=== PATIENT | male | born 1950 | race Caucasian/White ===

== ENCOUNTER → 2016-12-28 | Outpatient (CLI) | payer MEDICARE | END | disposition home or self-care (01) | LOC: GMAH 14:56 | PROVIDERS: ATTEND Family Medicine | DX: E03.9 Hypothyroidism, unspecified (principal); N39.0 Urinary tract infection, site not specified ==

== ENCOUNTER → 2017-02-16 | Outpatient (CLI) | payer MEDICARE | END | disposition home or self-care (01) | LOC: GMAM 13:13 | PROVIDERS: ATTEND Family Medicine | DX: N39.0 Urinary tract infection, site not specified (principal) ==

== ENCOUNTER → 2017-02-23 | Outpatient (CLI) | payer MEDICARE ==
--- NOTE | 2017-02-23 15:14 | CT ---
EXAM DESCRIPTION: Abdoment/Pelvis w/o Contrast CLINICAL HISTORY: 66 years,Male,CHRONIC PROSTATITS COMPARISON: None TECHNIQUE: Multiple axial helical tomographic images were obtained of the abdomen and pelvis with out IV or oral contrast and then reconstructed sagittal coronal plane FINDINGS: The unenhanced liver demonstrates a 1.2 cm simple cyst posterior right lobe. The spleen is unremarkable. The Pancreas is unremarkable. The adrenal glands are unremarkable. There are no stones seen in the urinary collection system. The kidneys demonstrate a low-density lesion right kidney midpole measuring 1.8 cm in diameter. With ill-defined borders. And a small simple appearing cysts lower pole left kidney exophytic measuring 1.4 cm. The bladder has a slightly thickened wall and there is mild right hydroureter and moderate hydronephrosis but no obvious stones seen. The prostate slightly large to 5.8W by four AP centimeters with some dystrophic calcifications. The gallbladder is demonstrates a few small calcified stones. No free air free fluid masses or adenopathy. The included bowel are unremarkable. The lung bases are unremarkable. The surrounding soft tissues are unremarkable. The bony elements some scattered disease lumbar spine worse at L1-1-2 and four five which is moderate to severe. IMPRESSION: Mild to moderate prostate hypertrophy. There is mild generalized thickening of the urinary bladder wall so cannot exclude cystitis but this could just be due to chronic outlet obstruction. And moderate right hydronephrosis and mild hydroureter. Which could be due to a ureter vesicular junction stenosis or even small unseen mass or nonradiopaque stone. Recommend further urological follow-up. There is a ill-defined low-density lesion mid pole right kidney. This most likely is a simple cyst but recommend either ultrasound or CT scan with IV contrast to confirm cystic versus solid a small simple appearing cyst lower pole left kidney Cholecystitis Electronically signed by: Tonny Duarte MD 02/23/2017 3:13 PM CDT
== END | disposition home or self-care (01) ==
LOC: CT 10:40
PROVIDERS: ATTEND Urology
DX: N41.1 Chronic prostatitis (principal)

== ENCOUNTER 2017-08-11 09:04 | Observation (INO) | payer MEDICARE ==
[2017-08-11] MEDS ORDERED: ASPIRIN TABLET 325 MG TAB PO ONE (09:20)
--- NOTE | 2017-08-11 09:51 | ED.PDOC ---
History of Present Illness - General Chief Complaint: Chest Pain/MS Stated Complaint: CHEST PAIN Time Seen by Provider: 08/11/17 09:23 Source: patient Exam Limitations: no limitations - History of Present Illness Initial Comments: Berny Esquivel 67 y/o male stated that he got his mail this morning from his mailbox walking returning to his house and sat but felt numbing feeling on left chest ,neck and left shoulder no diaphoresis,no SOB, no nausea.Had previous episode of same symptom in the past but did not last long.Had Afib in the [id number] and cardiac ablation done at [facility] which restored it to sinus rhythm.Stated his symptoms got better. Timing/Duration: 1-3 hours Severity/Quality: moderate, dull Location: central Chest Pain Radiation: neck, shoulders Activities at Onset: activity Prior Chest Pain/Cardiac Workup: no prior chest pain, echocardiography, other - see hpi Improving Factors: rest Worsening Factors: nothing Nitro Today/Relief: no nitro taken today Aspirin Treatment Today: 325 mg x 1, provided by ED Associated Symptoms: denies symptoms Allergies/Adverse Reactions: Allergies NO KNOWN ALLERGY Allergy (Unverified 01/05/14 02:09) Home Medications: Ambulatory Orders Levothyroxine Sodium [Synthroid] 50 mcg PO DAILY 08/11/17 Metoprolol Tartrate 50 mg PO DAILY 08/11/17 Review of Systems - Review of Systems Constitutional: States: no symptoms reported EENTM: States: see HPI, blurred vision - legally blind right eye Respiratory: States: no symptoms reported Cardiology: States: see HPI Gastrointestinal/Abdominal: States: no symptoms reported Genitourinary: States: no symptoms reported Past Medical History (General) - Patient Medical History Hx Cardiac Disorders: Yes - Atrial fib Hx Congestive Heart Failure: No Hx Hypertension: Yes Hx Thyroid Disease: Yes Hx Other PMH: Yes - right eye ischemic optic neuropathy Surgical History: other - cataract bilateral,cardiac ablation - Vaccination History Hx Influenza Vaccination: No Hx Pneumococcal Vaccination: No - Social History Hx Tobacco Use: No Hx Alcohol Use: No Hx Substance Use: No - Activities of Daily Living Patient Lives Alone: No - Family Medical History - Family History Father Family History: Unknown Living Status: Unknown Hx Family;Other: PARKINSONS-mom Physical Exam - Physical Exam General Appearance: Alert, No apparent distress Eyes, Ears, Nose, Throat Exam: normal ENT inspection, pharynx normal, other - legally blind right eye-see shadows only Neck: non-tender, supple Respiratory: chest non-tender, lungs clear, normal breath sounds Cardiovascular/Chest: normal peripheral pulses, regular rate, rhythm, no murmur Peripheral Pulses: radial,right: 1+, radial,left: 1+ Gastrointestinal/Abdominal: normal bowel sounds, non tender, soft, no organomegaly Extremity: normal range of motion, non-tender, normal inspection, no pedal edema , no calf tenderness Neurologic: no motor/sensory deficits, alert, normal mood/affect, oriented x 3 Skin Exam: normal color, warm/dry Progress - Progress Progress: 08/11/17 09:57 Vital Signs - 8 hr 08/11/17 08/11/17 09:09 09:24 Temperature 95.9 F L Pulse Rate [ 86 85 Left Brachial] Respiratory 20 Rate Blood Pressure 156/102 [Left Arm] O2 Sat by Pulse 100 Oximetry - EKG/XRAY/CT EKG: Sinus, no ST T wave changes Comments: Heart rate-88 XRAY: chest - no acute changes,heart size normal Departure - Departure Clinical Impression: Chest discomfort Time of Disposition: 12:11 Disposition: Admit Patient Condition: Fair Home Medications: Ambulatory Orders Levothyroxine Sodium [Synthroid] 50 mcg PO DAILY 08/11/17 Metoprolol Tartrate 50 mg PO DAILY 08/11/17 Decision To Admit - Decistion To Admit Decision to Admit Reason: Admit from ER Decision to Admit Date: 08/11/17 Decision to Admit Time: 12:11 - D/W Dr. Gallo-Hospitalist
--- NOTE | 2017-08-11 09:56 | RAD ---
Portable chest INDICATION: Chest pain IMPRESSION: Heart size normal. Minimal vascular congestion. Lucency under the right hemidiaphragm is probably in bowel but is nonspecific. No pleural effusion or pneumothorax. No focal infiltrate. Electronically signed by: Spenser Joseph MD 08/11/2017 9:54 AM CDT
--- NOTE | 2017-08-11 12:04 | HP ---
HISTORY OF PRESENT ILLNESS: This 67-year-old, white male walked out to the mailbox to get his mail earlier today. He had already eaten breakfast earlier. He noted the onset of left anterior chest significant aching sensation with radiation to the left side of the neck and the left arm, especially medially. No associated shortness of breath, diaphoresis, dizziness, nausea or vomiting noted. Duration was about 20 minutes and it spontaneously resolved. He had some symptoms similar to this while walking two weeks before with a strange ache in his left chest. He slowed his walking and the pain eased up and went away. He did some heavy lifting of some large stones about a week before and had no symptoms at that time. Otherwise, no previous history of symptoms in the past. The patient is placed in the hospital for overnight observation with serial EKG, cardiac enzymes to rule out the presence of underlying ischemic disease process contributing to his current symptoms. PAST MEDICAL HISTORY: 1. Cataracts. 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 Subsequently, he had his left eye which had worsened to the point where he was totally blind repaired at [facility] in [place] on 05/15/17 successfully with good vision subsequently. 2. Hypertension. 3. Prostate cancer noted no transurethral resection of the prostate specimens. PAST SURGICAL HISTORY: 1. Transurethral resection of the prostate because of bladder outlet obstruction with large prostate, at which time they found several niduses of prostate cancer and urological followup will be continued. 2. Years ago, he had atrial fibrillation and had the MAZE ablation procedure performed at [facility] which eliminated the atrial fibrillation problem. 3. Right eye cataract removal in August of 2015 and left eye on 05/15/17. CURRENT MEDICATIONS: Please refer to nursing list. ALLERGIES: NONE KNOWN. FAMILY HISTORY: Positive for cerebrovascular accidents and atrial fibrillation. 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 No tobacco use. REVIEW OF SYSTEMS: GENERAL: No significant weight change, fever or chills. HEENT: Loss of vision in his right eye. Left eye is doing much better after cataract surgery two months ago. Hearing is good. LUNGS: No significant shortness of breath or cough. CARDIOVASCULAR: No significant palpitations or chest pains recently, but a history of atrial fibrillation in the past. GASTROINTESTINAL: No diarrhea, nausea or vomiting. GENITOURINARY: History of recurring urinary tract infections, probably because of bladder outlet obstruction from a large prostate, now improved after transurethral resection of the prostate procedure performed by Dr. Velasquez. EXTREMITIES: Well formed. PHYSICAL EXAMINATION: VITAL SIGNS: Blood pressure 153/98. Pulse 73. Afebrile. Pulse oximetry 99% to 100% on room air. HEENT: Loss of vision in the right eye after retinal ischemic episode after his original cataract procedure. The left eye has good vision after cataract removal two months ago at [facility] in [place]. LUNGS: Generally clear. CARDIOVASCULAR: Heart tones are regular. EKG is within normal limits at this time. ABDOMEN: Soft with no obstipation, organomegaly or tenderness. EXTREMITIES: Well-formed, no significant edema. NEUROLOGIC: No focal neurological deficits are noted. The patient is awake, alert, oriented and communicative. LABORATORY: White count 6,400, hemoglobin 15.7. INR 1. D-dimer under 200. Chemistries show potassium 3.9, sodium 139, BUN 14, creatinine 0.8, glucose 85. Total bilirubin 1. Otherwise, liver enzymes normal. Cardiac enzymes show troponin 0.02 up to 0.03 an hour later. Albumin 5.2. Urinalysis is generally clean. No cultures obtained. Chest x-ray does reveal no acute findings. Heart size normal. ASSESSMENT: 1. Acute chest pain with the patient to be observed overnight for any evidence of an ischemic coronary disease contributing to these symptoms. 2. History of hypertension on beta blockade. 3. History of right eye blindness after initial cataract surgery. 4. Two months postoperative left eye cataract removal successfully with good vision noted. 5. History of bladder outlet obstruction because of large prostate, requiring transurethral resection of the prostate to assist. 6. History of recurring urinary tract infections until remedied by the transurethral resection of the prostate. PLAN: Observe closely tonight. Repeat enzymes tonight and in the morning with an EKG in the morning as well. Dr. Adan is coming by to see the patient in the hospital and we will arrange for some outpatient further evaluation beginning next week with close followup necessary also with Dr. Calhoun in the clinic and Dr. Adan in the cardiology clinic. Continue with aspirin daily as baby dose having stopped two months ago prior to the eye surgery and not restarted. Continue with close observation and management. [facility][id number] [facility]
[2017-08-11] MEDS ORDERED: MORPHINE SULFATE INJ 10 MG/ML VIAL IV PRN (13:20)
[2017-08-11] MEDS ORDERED: NITROGLYCERIN 0.4 MG 25 EA TAB SL PRN (13:20)
[2017-08-11] MEDS ORDERED: ACETAMINOPHEN 325 MG TAB PO PRN (13:20)
[2017-08-11] MEDS ORDERED: ASPIRIN (CHEWABLE) 81 MG TAB PO ONE (13:20)
[2017-08-11] MEDS ORDERED: SODIUM CHLORIDE 0.9% (FLUSH) 10 ML SYG IV PRN (13:20)
[2017-08-11] MEDS ORDERED: IV SET AND CAP CHANGE INJ INJ SCH (13:30)
--- NOTE | 2017-08-11 13:36 | PCM.CORE ---
Physician DVT/VTE - Nurse DVT Assessment & Total Each Risk Factor Represents 2 Points: Age 60-74 DVT Assessment Score: 2 - 2 Moderate Risk Treatments: Early Ambulation *, Sequential Compression Device Pharmacological: Enoxaparin 40mg SQ Daily
[2017-08-11] MEDS ORDERED: LEVOTHYROXINE SODIUM 0.025 MG TAB ONE (19:20)
[2017-08-11] MEDS ORDERED: ACETAMINOPHEN 500 MG TAB ONE (19:20)
[2017-08-11] MEDS ORDERED: diphenhydrAMINE HCL 25 MG CAP ONE (19:20)
[2017-08-11] MEDS ORDERED: OMEPRAZOLE CAP 20 MG CAP ONE (19:20)
[2017-08-11] MEDS ORDERED: ACETAMINOPHEN PO SCH (21:00)
[2017-08-11] MEDS ORDERED: DIPHENHYDRAMINE PO SCH (21:00)
[2017-08-11] MEDS ORDERED: diphenhydrAMINE HCL 25 MG CAP PO SCH (21:00)
[2017-08-11] MEDS ORDERED: ACETAMINOPHEN 500 MG TAB PO SCH (21:00)
[2017-08-11] MEDS: SODIUM CHLORIDE 0.9% (FLUSH) 10 ML SYG IV SCH (21:45)
[2017-08-12] MEDS ORDERED: LEVOTHYROXINE SODIUM 0.025 MG TAB PO SCH (06:30)
[2017-08-12] MEDS ORDERED: OMEPRAZOLE CAP 20 MG CAP PO SCH (06:30)
[2017-08-12] MEDS ORDERED: MULTIPLE VITAMINS W/ MINERALS 1 EA TAB ONE (07:29)
[2017-08-12] MEDS ORDERED: METOPROLOL SUCCINATE XL 50 MG TAB ONE (07:30)
[2017-08-12] MEDS ORDERED: ASPIRIN TABLET 325 MG TAB ONE (07:30)
[2017-08-12] MEDS: SODIUM CHLORIDE 0.9% (FLUSH) 10 ML SYG IV SCH (08:02)
[2017-08-12] MEDS ORDERED: METOPROLOL SUCCINATE XL 50 MG TAB PO SCH (09:00)
[2017-08-12] MEDS ORDERED: CENTRUM SILVER PO SCH (09:00)
[2017-08-12] MEDS ORDERED: ASPIRIN TABLET 325 MG TAB PO SCH (09:00)
[2017-08-12] MEDS ORDERED: MULTIPLE VITAMINS W/ MINERALS 1 EA TAB PO SCH (09:00)
[2017-08-12] MEDS ORDERED: METOPROLOL TARTRATE 50 MG TAB PO SCH (09:00)
[2017-08-12 10:10] VITALS: BP 129/81; TEMP 97.5; O2SAT 97
--- NOTE | 2017-08-12 14:05 | DS ---
SUPERVISING PHYSICIAN: Aaron Weeks M.D. DISCHARGE DIAGNOSIS: 1. Acute chest pain. The patient admitted to the hospital for observation and with a slightly elevated troponin that is now trending downward. 2. History of atrial fibrillation presently on Metoprolol. Has had no incidence of atrial fibrillation in the last 12 years. 3. Hypertension. 4. History of right eye blindness after initial cataract surgery. 5. Two months postoperative left eye cataract removal successfully with good vision noted. 6. History of bladder outlet obstruction due to large prostate requiring a transurethral resection of the prostate. 7. History of recurrent urinary tract infections. HISTORY OF PRESENT ILLNESS: This is a 67 year-old white male that walked out to his mailbox to get his mail on the date of admission. He noted the onset of left anterior chest pain with radiation to the left side of his neck and arm. There was no noted shortness of breath, diaphoresis, dizziness, nausea or vomiting. The duration was about 20 minutes and it spontaneously resolved. He has had some symptoms similar to this while walking several weeks before and after slowing his walking the symptoms resolved. He has not had any previous symptoms of this in the past. He was placed in the hospital for overnight observation with serial EKGs and cardiac enzymes to rule out the presence of underlying ischemic disease. It is to be noted that about 12 years ago he did have some atrial fibrillation and was recently placed on Metoprolol, but he has had no incidence of the irregular heart rate for over 12 years. HOSPITAL COURSE: The patient had no further symptoms of chest pain. His initial troponin was 0.02 and shortly thereafter was 0.03. His troponin then went up to 0.11 but this morning it was 0.07 and it has been trending downward. Dr. Adan, alteration manager, saw him in the hospital yesterday and told him to continue his Metoprolol. The patient had stopped his aspirin therapy approximately 2 months ago when he had cataract surgery and Dr. Adan recommended that his baby aspirin be restarted. The patient's chest pain has resolved and he can be discharged home today with close followup with his alteration manager. DISCHARGE PLAN: The patient will be discharged home in stable condition. He is to resume his Metoprolol as well as his baby aspirin regimen. He has an appointment with Dr. Adan at noon on 08/15/17 for further followup. I have also sent him home with a prescription of Nitroglycerin with instructions how to take the Nitroglycerin for chest pain. He is to return to the Emergency Room for any further complaints of chest pain or other complications. He will also need a followup with his primary care physician, Dr. Calhoun, within the next 2 weeks. DISCHARGE MEDICATIONS: 1. Levothyroxine. 2. Vitamin B12. 3. Tylenol PM. 4. Centrum Silver. 5. Metoprolol succinate. 6. Nitroglycerin. 7. Baby aspirin. Dr. Weeks is the collaborating physician available for consultation. [facility][id number] [facility]
== END 2017-08-12 11:25 | disposition home or self-care (01) ==
LOC: ER 09:04 → MS 12:04
PROVIDERS: ADMIT Emergency Medicine; ATTEND Nurse Practitioner Acute Care
DX: R07.89 Other chest pain (principal); R79.89 Other specified abnormal findings of blood chemistry; I10 Essential (primary) hypertension; H54.41 Blindness, right eye, normal vision left eye; N40.0 Benign prostatic hyperplasia without lower urinary tract symptoms; E07.9 Disorder of thyroid, unspecified; Z79.899 Other long term (current) drug therapy; Z86.79 Personal history of other diseases of the circulatory system; Z87.440 Personal history of urinary (tract) infections; Z98.42 Cataract extraction status, left eye; Z98.41 Cataract extraction status, right eye; Z82.3 Family history of stroke; Z82.49 Family history of ischemic heart disease and other diseases of the circulatory system
CPT/HCPCS: 36415 ×5; 71010; 80048 ×2; 80061; 80076; 81001; 82550 ×3; 82553 ×3; 84484 ×4; 85025; 85379; 85610; 85730; 93005 ×2; 94760 ×2; 99284; G0378; Q0163

== ENCOUNTER → 2017-11-08 | Outpatient (CLI) | payer MEDICARE | END | disposition home or self-care (01) | LOC: GMAH 17:57 | PROVIDERS: ATTEND Family Medicine | DX: N40.1 Benign prostatic hyperplasia with lower urinary tract symptoms (principal) ==

== ENCOUNTER → 2018-02-08 | Outpatient (CLI) | payer MEDICARE | LOC: GMAH 10:16 | PROVIDERS: ATTEND Family Medicine | DX: R97.20 Elevated prostate specific antigen [PSA] (principal); I10 Essential (primary) hypertension; E03.9 Hypothyroidism, unspecified ==

== ENCOUNTER → 2018-11-15 | Outpatient (CLI) | payer MEDICARE | LOC: GMAH 14:50 | PROVIDERS: ATTEND Family Medicine | DX: I10 Essential (primary) hypertension (principal); E03.9 Hypothyroidism, unspecified; Z12.5 Encounter for screening for malignant neoplasm of prostate | CPT/HCPCS: 84443; 84550; G0103 ==

== ENCOUNTER 2020-01-05 09:13 | Emergency (ER) | payer MEDICARE ==
[2020-01-05] MEDS ORDERED: SODIUM CHLORIDE 0.9% (FLUSH) 10 ML SYG IV PRN (09:42)
[2020-01-05] MEDS ORDERED: SODIUM CHLORIDE 0.9% 1000ML 1,000 ML IVS ONE ×2 (09:43→12:38)
--- NOTE | 2020-01-05 10:40 | ED.PDOC ---
History of Present Illness - General Chief Complaint: General Stated Complaint: Pt presents with SOB, dizziness, weakness Time Seen by Provider: 01/05/20 09:42 - History of Present Illness Initial Comments: c/o feeling weak , sob and dizziness for 3 mins ascoiated with tingling in fingers and toes for few seconds Timing/Duration: 1-3 hours Improving Factors: nothing Worsening Factors: nothing Allergies/Adverse Reactions: Allergies NO KNOWN ALLERGY Allergy (Verified 01/05/20 09:35) Home Medications: Ambulatory Orders Centrum Silver 1 tablet PO DAILY 08/11/17 Levothyroxine Sodium [Synthroid] 50 mcg PO DAILY 08/11/17 Metoprolol Succinate 50 mg PO DAILY 08/11/17 Tylenol Pm Extra Strength 500-25 mg 1 tablet PO BEDTIME 08/11/17 Vitamin B 12 500 mcg SUBCU DAILY 08/11/17 Aspirin [Aspirin EC Low Dose] 81 mg PO DAILY #30 tab 08/12/17 Nitroglycerin 0.4 mg Tab [Nitrostat] 1 ea SL Q5MIN PRN #1 bottle 08/12/17 Simvastatin 20 mg PO DAILY 01/05/20 Review of Systems - Review of Systems Constitutional: States: no symptoms reported EENTM: States: no symptoms reported Respiratory: States: no symptoms reported Cardiology: States: no symptoms reported, see HPI Gastrointestinal/Abdominal: States: no symptoms reported Genitourinary: States: no symptoms reported Musculoskeletal: States: no symptoms reported Neurological: States: see HPI Endocrine: States: no symptoms reported Hematologic/Lymphatic: States: no symptoms reported Past Medical History (General) - Patient Medical History Hx Seizures: No Hx Stroke: Yes - TIA 2003 Hx Asthma: No Hx of COPD: No Hx Cardiac Disorders: Yes - A fib, stent Hx Congestive Heart Failure: No Hx Pacemaker: No Hx Hypertension: Yes Hx Thyroid Disease: Yes - Hypo Hx Diabetes: No Hx Gastroesophageal Reflux: Yes Hx Cancer: No Hx MRSA: No Surgical History: cancer surgery, other - Vaccination History Hx Tetanus, Diphtheria Vaccination: No Hx Influenza Vaccination: No Hx Pneumococcal Vaccination: No - Social History Hx Tobacco Use: No Hx Alcohol Use: No Hx Substance Use: No Hx Substance Use Treatment: No Hx Depression: No Hx Physical Abuse: No Hx Emotional Abuse: No - Female History Patient is a Female of Child Bearing Age (10 -59 yrs old): No Patient : No Family Medical History - Family History Father Family History: Unknown Living Status: Still Living Hx Family Hypertension: Yes Hx Family;Other: PARKINSONS-mom Mother Living Status: Hx Family;Other: PARKINSONS AND AFIB Brother Hx Family Hypertension: Yes Physical Exam - Physical Exam General Appearance: Alert, Comfortable Eye Exam: bilateral normal Ears, Nose, Throat: hearing grossly normal, normal ENT inspection Neck: non-tender, full range of motion, supple, normal inspection Respiratory: chest non-tender, lungs clear, normal breath sounds, no respiratory distress, no accessory muscle use Cardiovascular/Chest: regular rate, rhythm, no edema, no gallop, no JVD, no murmur Back Exam: normal inspection, no CVA tenderness, no vertebral tenderness Extremity: normal range of motion, non-tender Neurologic: financial services associate II-XII nml as tested, no motor/sensory deficits, alert, normal mood/affect, oriented x 3 Skin Exam: normal color, warm/dry Lymphatic: no adenopathy Progress - Progress Progress: 01/05/20 12:48 Pt was started fluid and was cardiovert , held cardiazem and requested to follow up with cardiology During the visit saw the pt multiple time answer all the concern of the pt , reviewed labs and X-ray with the pt. Told the pt that if symptoms gets worse , please come back to ER Follow up PCP as soon as possible 01/07/20 23:07 - Results/Orders Results/Orders: Laboratory Results WBC 10.3 K/mm3 (4.8-10.8) 01/05/20 09:42 RBC 4.40 M/mm3 (4.70-6.10) L 01/05/20 09:42 Hgb 13.7 gm/dL (14.0-18.0) L 01/05/20 09:42 Hct 41.4 % (42.0-52.0) L 01/05/20 09:42 MCV 94.2 fl (80.0-94.0) H 01/05/20 09:42 MCH 31.2 pg (27.0-31.0) H 01/05/20 09:42 MCHC 33.1 g/dL (33.0-37.0) 01/05/20 09:42 RDW 13.4 % (11.5-14.5) 01/05/20 09:42 Plt Count 237 K/mm3 (130-400) 01/05/20 09:42 MPV 8.2 fl (7.40-10.4) 01/05/20 09:42 Absolute Neuts (auto) 8.00 K/uL (1.8-6.8) H 01/05/20 09:42 Absolute Lymphs (auto) 1.30 K/uL (1.0-3.4) 01/05/20 09:42 Absolute Monos (auto) 0.90 K/uL (0.2-0.8) H 01/05/20 09:42 Absolute Eos (auto) 0.00 K/uL (0.0-0.4) 01/05/20 09:42 Absolute Basos (auto) 0.10 K/uL (0.0-0.1) 01/05/20 09:42 Neutrophils % 77.9 % (42.0-78.0) 01/05/20 09:42 Lymphocytes % 12.5 % (20.0-50.0) L 01/05/20 09:42 Monocytes % 9.0 % (2.0-9.0) 01/05/20 09:42 Eosinophils % 0.1 % (1.0-5.0) L 01/05/20 09:42 Basophils % 0.5 % (0.0-2.0) 01/05/20 09:42 PT 10.2 SECONDS (9.0-10.9) 01/05/20 09:42 INR 1.03 (0.9-1.15) 01/05/20 09:42 PTT (SP) 23.4 SECONDS (21.8-31.6) 01/05/20 09:42 D-Dimer, Quantitative < 131 ng/ml (131-400) L 01/05/20 09:42 Sodium 139 mmol/L (135-145) 01/05/20 09:42 Potassium 4.2 mmol/L (3.6-5.0) 01/05/20 09:42 Chloride 104 mmol/L (101-111) 01/05/20 09:42 Carbon Dioxide 27 mmol/L (21-31) 01/05/20 09:42 Anion Gap 12.2 (12-18) 01/05/20 09:42 BUN 20 mg/dL (7-18) H 01/05/20 09:42 Creatinine 0.98 mg/dL (0.6-1.3) 01/05/20 09:42 BUN/Creatinine Ratio 20.4 (10-20) H 01/05/20 09:42 Random Glucose 109 mg/dL (70-105) H 01/05/20 09:42 Serum Osmolality 280.7 mOsm/L (275-295) 01/05/20 09:42 Calcium 9.4 mg/dL (8.4-10.2) 01/05/20 09:42 Magnesium 2.2 mg/dL (1.8-2.5) 01/05/20 09:42 Total Bilirubin 1.2 mg/dL (0.2-1.0) H 01/05/20 09:42 Direct Bilirubin 0.3 mg/dL (0-0.2) H 01/05/20 09:42 Indirect Bilirubin 0.9 mg/dL (0.2-0.8) H 01/05/20 09:42 AST 27 IU/L (10-42) 01/05/20 09:42 ALT 13 IU/L (10-60) 01/05/20 09:42 Alkaline Phosphatase 58 IU/L (42-121) 01/05/20 09:42 Creatine Kinase 76 IU/L (38-174) 01/05/20 09:42 CK-MB (CK-2) 2.4 ng/mL (0.0-4.4) 01/05/20 09:42 CK-MB (CK-2) % Not Reportable 01/05/20 09:42 Troponin I < 0.02 ng/mL (0.01-0.05) 01/05/20 11:56 B-Natriuretic Peptide 220.0 pg/ml (0-100) H* 01/05/20 09:42 Serum Total Protein 7.6 gm/dL (6.4-8.2) 01/05/20 09:42 Albumin 4.2 g/dl (3.2-5.5) 01/05/20 09:42 - EKG/XRAY/CT EKG: Fibrillation Departure - Departure Clinical Impression: Weakness, Afib Time of Disposition: 12:47 Disposition: Discharge to Home or Self Care Condition: Good Departure Forms: ED Discharge - Pt. Copy, Patient Portal Self Enrollment Diet: resume usual diet Activity: increase activity as tolerated, walking as tolerated Referrals: Chirag Castillo MD [Primary Care Provider] - 1-2 Weeks Home Medications: Ambulatory Orders Centrum Silver 1 tablet PO DAILY 08/11/17 Levothyroxine Sodium [Synthroid] 50 mcg PO DAILY 08/11/17 Metoprolol Succinate 50 mg PO DAILY 08/11/17 Tylenol Pm Extra Strength 500-25 mg 1 tablet PO BEDTIME 08/11/17 Vitamin B 12 500 mcg SUBCU DAILY 08/11/17 Aspirin [Aspirin EC Low Dose] 81 mg PO DAILY #30 tab 08/12/17 Nitroglycerin 0.4 mg Tab [Nitrostat] 1 ea SL Q5MIN PRN #1 bottle 08/12/17 Simvastatin 20 mg PO DAILY 01/05/20 Additional Instructions: Follow up with the cardiology as soon as possible Plenty of liquids Please come back to ER if symptoms comes back or any other medical problem
--- NOTE | 2020-01-05 10:41 | CT ---
CT of the head without contrast HISTORY: Weakness COMPARISON: None FINDINGS: Axial CT images acquired of the brain without contrast show encephalomalacia from prior infarct in the right frontal lobe. No hemorrhage, acute infarction or mass lesion. The ventricular system is normal in size and there is no midline shift. Mild inflammatory changes in the left maxillary sinus otherwise the paranasal sinuses and mastoid air cells are clear. 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 No acute intracranial abnormalities. This exam was performed according to our departmental dose-optimization program which includes use of Automated Exposure Control, adjustment of the mA and/or kV according to patient size and/or use of iterative reconstruction technique. Electronically signed by: Chito Jefferson DO 01/05/2020 10:40 AM RAILROAD OPERATOR
--- NOTE | 2020-01-05 10:42 | RAD ---
EXAM DESCRIPTION: Single x-ray view of the chest CLINICAL HISTORY:69 years Male, sob Comparison: July 2017 FINDINGS: No focal lung consolidation. No pleural effusion. No pneumothorax. Cardiac and mediastinal silhouette is unremarkable. No acute osseous abnormality. Soft tissues are unremarkable. IMPRESSION: No acute findings. No focal lung consolidation. . Electronically signed by: Chito Jefferson DO 01/05/2020 10:41 AM [facility]
[2020-01-05 13:12] VITALS: O2SAT 98
[2020-01-05 13:23] VITALS: BP 116/80; TEMP 96.9
== END 2020-01-05 13:15 | disposition home or self-care (01) ==
LOC: ER 09:13
DX: R53.1 Weakness (principal); I48.91 Unspecified atrial fibrillation; R42 Dizziness and giddiness; R06.02 Shortness of breath; R20.8 Other disturbances of skin sensation; I10 Essential (primary) hypertension; E03.9 Hypothyroidism, unspecified; K21.9 Gastro-esophageal reflux disease without esophagitis; Z95.5 Presence of coronary angioplasty implant and graft; Z85.9 Personal history of malignant neoplasm, unspecified; Z86.73 Personal history of transient ischemic attack (TIA), and cerebral infarction without residual deficits; Z79.82 Long term (current) use of aspirin; Z79.899 Other long term (current) drug therapy
CPT/HCPCS: 36415; 70450; 71045; 80048; 80076; 82550; 82553; 83880; 84484; 85025; 85379; 85610; 85730; 93005; 94760; J7030